=== PATIENT | male | born 1980 | race African-American/Black ===

== ENCOUNTER 2018-11-11 12:32 | Inpatient (IN) | payer OTHER ==
--- NOTE | 2018-11-11 14:48 | HP ---
CIWA Score Nausea/Vomitin-No Nausea/No Vomiting Muscle Tremors: None Anxiety: 2 Agitation: 0-Normal Activity Paroxysmal Sweats: 1-Minimal Palms Moist Orientation: 0-Oriented Tacttile Disturbances: 0-None Auditory Disturbances: 0-None Visual Disturbances: 0-None Headache: 0-None Present CIWA-Ar Total Score: 3 - Admission Criteria OASAS Guidelines: Admission for Medically Managed Detox: Requires at least one of the followin. CIWA greater than 12 2. Seizures within the past 24 hours 3. Delirium tremens within the past 24 hours 4. Hallucinations within the past 24 hours 5. Acute intervention needed for co occurring medical disorder 6. Acute intervention needed for co occurring psychiatric disorder 7. Severe withdrawal that cannot be handled at a lower level of care (continued vomiting, continued diarrhea, abnormal vital signs) requiring intravenous medication and/or fluids 8. Patient presents the following: None of the above Admission Criteria Met: Admission criteria not met Admission ROS [facility] Chief Complaint: " alcohol rehabilitation." Allergies/Adverse Reactions: Allergies Allergy/AdvReac Type Severity Reaction Status Date / Time No Known Allergies Allergy Verified 11/11/18 14:16 History of Present Illness: 38 yo male with hx of nicotine, marijuana and alcohol dependence is here seeking rehabilitation, patient referred by [facility]. PMHX: HTN Patient reports linked to TAD program at [facility] for bipolar and schizophrenia. Denies hx of seizures or blackouts. Reports last detox at [facility] two years ago. Denies suicidal / homicidal ideation. Reports hx of suicide attempt at 16 yo. Exam Limitations: No Limitations - Ebola screening Have you traveled outside of the country in the last 21 days: No Have you had contact with anyone from an Ebola affected area: No Do you have a fever: No - Review of Systems Constitutional: No Symptoms Reported EENT: reports: No Symptoms Reported Respiratory: reports: No Symptoms reported Cardiac: reports: No Symptoms Reported GI: reports: No Symptoms Reported : reports: No Symptoms Reported Musculoskeletal: reports: No Symptoms Reported Integumentary: reports: No Symptoms Reported Neuro: reports: No Symptoms reported Endocrine: reports: No Symptoms Reported Hematology: reports: No Symptoms Reported Psychiatric: reports: Orientated x3, Anxious Other Systems: Reviewed and Negative Patient History - Patient Medical History Hx Anemia: No Hx Asthma: No Hx Chronic Obstructive Pulmonary Disease (COPD): No Hx Cancer: No Hx Cardiac Disorders: No Hx Congestive Heart Failure: No Hx Hypertension: Yes (no meds ) Hx Hypercholesterolemia: No Hx Pacemaker: No HX Cerebrovascular Accident: No Hx Seizures: No Hx Dementia: No Hx Diabetes: No Hx Gastrointestinal Disorders: No Hx Liver Disease: No Hx Genitourinary Disorders: No Hx Sexually Transmitted Disorders: No Hx Renal Disease (ESRD): No Hx Thyroid Disease: No Hx Hepatitis C: No Hx Depression: No Hx Suicide Attempt: Yes (16 yo hanging ) Hx Bipolar Disorder: Yes Hx Schizophrenia: Yes (Reports received IM hadol QM at [facility] ) - PPD History Previous Implant?: No - Smoking Cessation Smoking history: Current every day smoker Have you smoked in the past 12 months: Yes Aproximately how many cigarettes per day: 3 Hx Chewing Tobacco Use: No Initiated information on smoking cessation: Yes 'Breaking Loose' booklet given: 11/11/18 - Substance & Tx. History Hx Alcohol Use: Yes Hx Substance Use: Yes Substance Use Type: Alcohol Hx Substance Use Treatment: Yes ([facility] two years ago. ) - Substances abused Alcohol Substance route: Oral Frequency: 3-6 times per week Amount used: 1 pint vodka Age of first use: 16 Date of last use: 11/10/18 Marijuana/Hashish Substance route: Smoking Frequency: Daily Amount used: 5 blunts Age of first use: 16 Date of last use: 10/21/18 Family Disease History - Family Disease History Family Disease History: Other: Mother (alcohol, alive) Admission Physical Exam S - Vital Signs Vital Signs: Vital Signs - 24 hr 11/11/18 14:30 Temperature 98.7 F Pulse Rate 72 Respiratory 18 Rate Blood Pressure 131/78 - Physical General Appearance: Yes: Appropriately Dressed, Thin, Anxious HEENTM: Yes: EOMI, Hearing grossly Normal, Normal ENT Inspection, Normocephalic , Normal Voice, LEDA, Pharynx Normal, Tm's normal Respiratory: Yes: Chest Non-Tender, Lungs Clear, Normal Breath Sounds, No Respiratory Distress, No Accessory Muscle Use Neck: Yes: Within Normal Limits Breast: Yes: Breast Exam Deferred Cardiology: Yes: Regular Rhythm, Regular Rate Abdominal: Yes: Normal Bowel Sounds, Non Tender, Flat, Soft Genitourinary: Yes: Within Normal Limits Back: Yes: Normal Inspection Musculoskeletal: Yes: full range of Motion, Gait Steady, Pelvis Stable Extremities: Yes: Normal Capillary Refill, Normal Inspection, Normal Range of Motion, Non-Tender Neurological: Yes: shipsmith II-XII NML intact, Fully Oriented, Alert, Motor Strength 5/5 Integumentary: Yes: Normal Color, Dry, Warm Lymphatic: Yes: Within Normal Limits - Diagnostic (1) Alcohol dependence Current Visit: Yes Status: Acute (2) Marijuana dependence Current Visit: Yes Status: Acute (3) Nicotine dependence Current Visit: Yes Status: Acute (4) Hypertension Current Visit: Yes Status: Chronic Qualifiers: Hypertension type: essential hypertension Qualified Code(s): I10 - Essential (primary) hypertension Breathalyzer - Breathalyzer Breathalyzer: 0 Urine Drug Screen - Test Device Lot number: [id number] Expiration date: 07/12/20 - Control Is test valid?: Yes - Results Drug screen NEGATIVE: No Urine drug screen results: THC-Marijuana, BZO-Benzodiazepines Inpatient Rehab Admission - Rehab Decision to Admit Inpatient rehab admission?: Yes - Initial Determination Are CD services needed?: Yes Free of communicable disease: Yes Not in need of hospitalization: Yes - Rehab Admission Criteria Previous failed treatment: Yes Poor recovery environment: Yes Comorbidities: Yes Lacks judgement: Yes Patient is meeting Inpatient Rehab admission criteria:: Yes
[2018-11-11] MEDS ORDERED: MAG HYDROX/AL HYDROX/SIMETH 30 ML UNIT-DOSE CUP PO PRN (14:59)
[2018-11-11] MEDS ORDERED: NICOTINE POLACRILEX 2 MG GUM BUC PRN (14:59)
[2018-11-11] MEDS ORDERED: MAGNESIUM HYDROX 2400MG/30ML ORAL SUSPENSION 30 ML CUP PO PRN (14:59)
[2018-11-11] MEDS ORDERED: MAGNESIUM CITRATE 300 ML BOTTLE PO PRN (14:59)
[2018-11-11] MEDS ORDERED: guaiFENesin 200 MG/10 ML 10 ML UNIT-DOSE CUPS PO PRN (14:59)
[2018-11-11] MEDS ORDERED: LOPERAMIDE HCL 2 MG CAPSULE PO PRN (14:59)
[2018-11-11] MEDS ORDERED: P-EPHED 60MG/TRIPROLIDI 2.5MG TABLET PO PRN (14:59)
[2018-11-11] MEDS ORDERED: hydrOXYzine PAMOATE 50 MG CAPSULE (FP) PO PRN (14:59)
[2018-11-11] MEDS ORDERED: MENTHOL/PHENOL 1 EACH UD MM PRN (14:59)
[2018-11-11] MEDS ORDERED: TUBERCULIN PPD 5 TU/0.1ML VIAL ID ONE (16:40)
--- NOTE | 2018-11-11 17:40 | CONSULT ---
[facility] Psychiatric Consult - Data Date of interview: 11/11/18 Admission source: [facility] Identifying data: First admission to [facility] for this 38 y/o AA male referred , by his casey saw operator from [facility] program, for rehabilitative care. Substances of abuse : alcohol, cannabis and nicotine. Examined at [address] Patient is single, no children, domiciled, unemployed and supported on SSI benefits. Substance Abuse History: Confirmed by the patient in this interview. Details in current [facility] report as follows : Smoking history: Current every day smoker. Have you smoked in the past 12 months: Yes. Aproximately how many cigarettes per day: 3. Hx Chewing Tobacco Use: No. Initiated information on smoking cessation: Yes. 'Breaking Loose' booklet given: 11/11/18. - Substance & Tx. History. Hx Alcohol Use: Yes. Hx Substance Use: Yes. Substance Use Type: Alcohol. Hx Substance Use Treatment: Yes ([facility] two years ago. ). - Substances abused. Alcohol. Substance route: Oral. Frequency: 3-6 times per week. Amount used: 1 pint vodka. Age of first use: 16. Date of last use: 11/10/18. Marijuana/Hashish. Substance route: Smoking. Frequency: Daily. Amount used: 5 blunts. Age of first use: 16. Date of last use: 10/21/18 Medical History: Patient endorses good general health. Psychiatric History: Patient admits to a history of 2-3 psychiatric hospitalizations ([facility], [facility]). Onset of psychiatric disturbances : age 16 (serious suicide attempt via self-mutilation : attempted to slash his throat with a razor). Got his first psychiatric hospitalization at [facility] (involuntary committment for more than three months). Medicated, at the time, with Mellaril and thorazine. Diagnosed with " Bipolar Disorder + Schizophrenia ". Mr Rudolph is currently followed at the [facility] (Day treatment program). Patient is now on monthly IM injections of haloperidol decanoate (last dispensed two weeks ago, as per self- report). Dosage not recalled by the patient. Suicide history : two attempts ( age 16 : slashed his throat / age 18 : attempted to jump from a high rise window but was dissuaded by [facility]). Physical/Sexual Abuse/Trauma History: Patient denies history of abuse. Additional Comment: Urine drug screen results: THC-Marijuana, BZO- Benzodiazepines. Noted. Mental Status Exam - Mental Status Exam Alert and Oriented to: Time, Place, Person Cognitive Function: Good Patient Appearance: Well Groomed (noted as decently groomed and appearing his stated age) Mood: Hopeful, Euthymic (calm) Affect: Appropriate, Normal Range Patient Behavior: Fatigued, Appropriate (friendly, receptive to teaching), Cooperative Speech Pattern: Clear, Appropriate (observed as a good historian) Voice Loudness: Normal Thought Process: Goal Oriented Thought Disorder: Not Present (at time of this examination) Hallucinations: Denies Suicidal Ideation: Denies Homicidal Ideation: Denies Insight/Judgement: Fair Sleep: Fair Appetite: Good (as per self-report) Muscle strength/Tone: Normal Gait/Station: Normal Psychiatric Findings - Problem List ([place] 1, 2,3) (1) History of schizophrenia Current Visit: Yes Status: Chronic (2) Alcohol dependence Current Visit: Yes Status: Chronic (3) Marijuana dependence Current Visit: Yes Status: Chronic (4) Nicotine dependence Current Visit: Yes Status: Chronic - Initial Treatment Plan Initial Treatment Plan: Psychoeducation. Support. Orientation to the unit. Sleep hygiene. AA meetings. Groups. Strategies for ETOH relapse prevention (MAT initiatives, counseling) : to be discussed with the patient at therapy sessions throughout this hospital course. Motivational enhancement for positive lifestyle changes. Will contact casey saw operator at the [facility] program for collateral information + details of medication regimen (dose of haldol decanoate + date of most recent injection). Psychotropics held until information from [facility]. Discussed with the patient. Mr Rudolph has expressed his agreement with this plan of care. Observation.
[2018-11-11] MEDS: THIAMINE HCL 100 MG TABLET (FP) PO SCH (21:23)
[2018-11-12 09:59] LABS: HEMATOCRIT 42.4 % (35.4-49); HEMOGLOBIN 14.3 GM/dL (11.7-16.9); MCH 31.4 pg (25.7-33.7); MCHC 33.7 g/dl (32.0-35.9); MEAN PLT VOLUME 9.4 fl (7.5-11.1); PLATELET COUNT 245 K/MM3 (134-434); RBC 4.56 M/mm3 (4.00-5.60); RDW 13.9 % (11.9-15.9); WHITE BLOOD COUNT 8.2 K/mm3 (4.0-10.0)
[2018-11-12] MEDS: NICOTINE 14 MG/24 HOURS TOPICAL PATCH TD SCH (10:19)
[2018-11-12] MEDS: PRENATAL VITAMINS W/ FOLIC ACID TABLET (FP) PO SCH (10:19)
[2018-11-12 10:42] LABS: ALBUMIN 3.9 g/dl (3.4-5.0); ALK PHOS 69 U/L (45-117); ANION GAP 6 MMOL/L (8-16); BILIRUBIN,TOTAL 0.3 mg/dL (0.2-1); BLOOD UREA NITROGEN 12 mg/dL (7-18); CALCIUM 9.3 mg/dL (8.5-10.1); CHLORIDE 106 mmol/L (98-107); CO2 28 mmol/L (21-32); CREATININE 1.2 mg/dL (0.55-1.3); GLUCOSE,RANDOM 119 mg/dL (74-106); POTASSIUM 4.7 mmol/L (3.5-5.1); SGOT/AST 10 U/L (15-37); SGPT/ALT 18 U/L (13-61); SODIUM 140 mmol/L (136-145); TOT PROT 7.3 g/dl (6.4-8.2)
--- NOTE | 2018-11-12 14:46 | EKG ---
Test Reason : Blood Pressure : / mmHG Vent. Rate : 067 BPM Atrial Rate : 067 BPM P-R Int : 152 ms QRS Dur : 066 ms QT Int : 358 ms P-R-T Axes : 035 -18 036 degrees QTc Int : 378 ms NORMAL SINUS RHYTHM NORMAL ECG NO PREVIOUS ECGS AVAILABLE Confirmed by Rodriguez Wilson ([id number]) on 11/12/2018 2:46:13 PM Referred By: Confirmed By:Rodriguez Wilson
[2018-11-12] MEDS: MELATONIN 5 MG TABLETS PO PRN (21:32)
[2018-11-12] MEDS: THIAMINE HCL 100 MG TABLET (FP) PO SCH (21:33)
[2018-11-13] MEDS: PRENATAL VITAMINS W/ FOLIC ACID TABLET (FP) PO SCH (10:11)
[2018-11-13] MEDS: NICOTINE 14 MG/24 HOURS TOPICAL PATCH TD SCH (10:11)
--- NOTE | 2018-11-13 16:34 | PN ---
[facility] Progress Note Note: Psychiatry Attending's note (follow-up) : Several attempts made to contact [facility] OPD clinic. Principal Network Architect called : [phone] Unable to find a supervisor contact lens. Message left for Director of OPD services. At [phone]. Will follow.
[2018-11-13] MEDS: THIAMINE HCL 100 MG TABLET (FP) PO SCH (21:16)
[2018-11-13] MEDS: MELATONIN 5 MG TABLETS PO PRN (21:16)
[2018-11-14] MEDS: NICOTINE 14 MG/24 HOURS TOPICAL PATCH TD SCH (10:02)
[2018-11-14] MEDS: PRENATAL VITAMINS W/ FOLIC ACID TABLET (FP) PO SCH (10:03)
[2018-11-14] MEDS: ACETAMINOPHEN 325 MG TABLET (FP) PO PRN (13:12)
[2018-11-14] MEDS: THIAMINE HCL 100 MG TABLET (FP) PO SCH (21:26)
[2018-11-15] MEDS: NICOTINE 14 MG/24 HOURS TOPICAL PATCH TD SCH (09:54)
[2018-11-15] MEDS: PRENATAL VITAMINS W/ FOLIC ACID TABLET (FP) PO SCH (09:54)
[2018-11-15] MEDS: ACETAMINOPHEN 325 MG TABLET (FP) PO PRN (19:09)
[2018-11-15] MEDS: THIAMINE HCL 100 MG TABLET (FP) PO SCH (21:37)
[2018-11-16] MEDS: NICOTINE 14 MG/24 HOURS TOPICAL PATCH TD SCH (10:04)
[2018-11-16] MEDS: PRENATAL VITAMINS W/ FOLIC ACID TABLET (FP) PO SCH (10:04)
--- NOTE | 2018-11-16 13:34 | PN ---
[facility] Progress Note Note: Psychiatry Attending's note (follow-up) : Case discussed with RN Gabino Jeronimo on 11/15/18. Progress note from social sciences research scientist Robert Wiseman (11/15/18) : appreciated. Noted information from [facility]PD about patient's medications. Mr Rudolph is not on haldol decanoate. Instead, he is on Maintena (Abilify) 400 mg IM monthly. Plan : Resume abilify 5 mg po bid + depakote 500 mg po bid. Abilify IM dose (400 mg IM monthly) is due on 11/20/18. According to Ms Wiseman's report. Discussed with Mr Rudolph. Side effects/benefits of both drugs revisited with the patient. Consent (verbal) granted to . Will follow.
[2018-11-16] MEDS: DIVALPROEX SODIUM 500 MG TABLET E.C. PO SCH (21:56)
[2018-11-16] MEDS: THIAMINE HCL 100 MG TABLET (FP) PO SCH (21:56)
[2018-11-16] MEDS: ARIPiprazole 5 MG TABLET (FP) PO SCH (21:56)
[2018-11-17] MEDS: NICOTINE 14 MG/24 HOURS TOPICAL PATCH TD SCH (10:04)
[2018-11-17] MEDS: DIVALPROEX SODIUM 500 MG TABLET E.C. PO SCH ×2 (10:04→21:21)
[2018-11-17] MEDS: PRENATAL VITAMINS W/ FOLIC ACID TABLET (FP) PO SCH (10:04)
[2018-11-17] MEDS: ARIPiprazole 5 MG TABLET (FP) PO SCH ×2 (10:04→21:21)
[2018-11-17] MEDS: THIAMINE HCL 100 MG TABLET (FP) PO SCH (21:21)
[2018-11-18] MEDS: PRENATAL VITAMINS W/ FOLIC ACID TABLET (FP) PO SCH (10:32)
[2018-11-18] MEDS: DIVALPROEX SODIUM 500 MG TABLET E.C. PO SCH ×2 (10:32→21:27)
[2018-11-18] MEDS: ARIPiprazole 5 MG TABLET (FP) PO SCH ×2 (10:32→21:27)
[2018-11-18] MEDS: NICOTINE 14 MG/24 HOURS TOPICAL PATCH TD SCH (10:33)
[2018-11-18] MEDS: IBUPROFEN 400 MG TABLET (FP) PO PRN (12:43)
[2018-11-18] MEDS: THIAMINE HCL 100 MG TABLET (FP) PO SCH (21:27)
[2018-11-19] MEDS: ARIPiprazole 5 MG TABLET (FP) PO SCH ×2 (10:02→21:23)
[2018-11-19] MEDS: NICOTINE 14 MG/24 HOURS TOPICAL PATCH TD SCH (10:02)
[2018-11-19] MEDS: PRENATAL VITAMINS W/ FOLIC ACID TABLET (FP) PO SCH (10:02)
[2018-11-19] MEDS: DIVALPROEX SODIUM 500 MG TABLET E.C. PO SCH ×2 (10:02→21:23)
[2018-11-19] MEDS: THIAMINE HCL 100 MG TABLET (FP) PO SCH (21:23)
[2018-11-20] MEDS: DIVALPROEX SODIUM 500 MG TABLET E.C. PO SCH ×2 (10:00→21:17)
[2018-11-20] MEDS: NICOTINE 14 MG/24 HOURS TOPICAL PATCH TD SCH (10:00)
[2018-11-20] MEDS: ARIPiprazole 5 MG TABLET (FP) PO SCH ×2 (10:00→21:17)
[2018-11-20] MEDS: PRENATAL VITAMINS W/ FOLIC ACID TABLET (FP) PO SCH (10:00)
--- NOTE | 2018-11-20 18:37 | PN ---
[facility] Progress Note Note: Psychiatry Attending's note (follow-up) : Met briefly with the patient. Doing well. Mr Rudolph remains inquisitive about IM aripriprazole. " I am due for my injection. When am I going to get it ? ". Patient is reassured. Dose confirmed by director of [facility] OPD clinic. Fax received from [facility] (dose verified). Side effects/benefits discussed with the patient. Consent (verbal) given to MD. Holland ([facility]) 400 mg IM ONCE To be dispensed on 11/21/18 @ 10:00 AM. Discussed with nursing staff.
[2018-11-20] MEDS: IBUPROFEN 400 MG TABLET (FP) PO PRN (21:17)
[2018-11-20] MEDS: THIAMINE HCL 100 MG TABLET (FP) PO SCH (21:17)
[2018-11-21] MEDS ORDERED: ARIPIPRAZOLE (ABILIFY MAINTENA) 400 MG DISPENSE SYRINGE IM ONE (10:00)
[2018-11-21] MEDS: PRENATAL VITAMINS W/ FOLIC ACID TABLET (FP) PO SCH (11:01)
[2018-11-21] MEDS: DIVALPROEX SODIUM 500 MG TABLET E.C. PO SCH ×2 (11:02→21:23)
[2018-11-21] MEDS: IBUPROFEN 400 MG TABLET (FP) PO PRN ×2 (11:02→21:23)
[2018-11-21] MEDS: NICOTINE 14 MG/24 HOURS TOPICAL PATCH TD SCH (11:04)
[2018-11-21] MEDS: ARIPiprazole 5 MG TABLET (FP) PO SCH ×2 (11:04→21:23)
[2018-11-21] MEDS: THIAMINE HCL 100 MG TABLET (FP) PO SCH (21:23)
[2018-11-22] MEDS: PRENATAL VITAMINS W/ FOLIC ACID TABLET (FP) PO SCH (10:28)
[2018-11-22] MEDS: DIVALPROEX SODIUM 500 MG TABLET E.C. PO SCH ×2 (10:28→21:25)
[2018-11-22] MEDS: NICOTINE 14 MG/24 HOURS TOPICAL PATCH TD SCH (10:28)
[2018-11-22] MEDS: ARIPiprazole 5 MG TABLET (FP) PO SCH ×2 (10:28→21:25)
[2018-11-22] MEDS: THIAMINE HCL 100 MG TABLET (FP) PO SCH (21:25)
[2018-11-22] MEDS: IBUPROFEN 400 MG TABLET (FP) PO PRN (21:25)
[2018-11-23] MEDS: IBUPROFEN 400 MG TABLET (FP) PO PRN (09:56)
[2018-11-23] MEDS: PRENATAL VITAMINS W/ FOLIC ACID TABLET (FP) PO SCH (09:56)
[2018-11-23] MEDS: NICOTINE 14 MG/24 HOURS TOPICAL PATCH TD SCH (09:56)
[2018-11-23] MEDS: DIVALPROEX SODIUM 500 MG TABLET E.C. PO SCH ×2 (09:56→21:16)
[2018-11-23] MEDS: ARIPiprazole 5 MG TABLET (FP) PO SCH ×2 (09:56→21:16)
[2018-11-23] MEDS: THIAMINE HCL 100 MG TABLET (FP) PO SCH (21:16)
[2018-11-24] MEDS: IBUPROFEN 400 MG TABLET (FP) PO PRN (08:55)
[2018-11-24] MEDS: PRENATAL VITAMINS W/ FOLIC ACID TABLET (FP) PO SCH (10:18)
[2018-11-24] MEDS: DIVALPROEX SODIUM 500 MG TABLET E.C. PO SCH ×2 (10:18→21:36)
[2018-11-24] MEDS: ARIPiprazole 5 MG TABLET (FP) PO SCH ×2 (10:18→21:36)
[2018-11-24] MEDS: NICOTINE 14 MG/24 HOURS TOPICAL PATCH TD SCH (10:19)
[2018-11-24] MEDS: THIAMINE HCL 100 MG TABLET (FP) PO SCH (21:36)
[2018-11-25] MEDS: NICOTINE 14 MG/24 HOURS TOPICAL PATCH TD SCH (09:56)
[2018-11-25] MEDS: ARIPiprazole 5 MG TABLET (FP) PO SCH ×2 (09:56→21:25)
[2018-11-25] MEDS: DIVALPROEX SODIUM 500 MG TABLET E.C. PO SCH ×2 (09:56→21:26)
[2018-11-25] MEDS: PRENATAL VITAMINS W/ FOLIC ACID TABLET (FP) PO SCH (09:56)
[2018-11-25] MEDS: THIAMINE HCL 100 MG TABLET (FP) PO SCH (21:25)
[2018-11-25] MEDS: IBUPROFEN 400 MG TABLET (FP) PO PRN (21:25)
[2018-11-26] MEDS: ARIPiprazole 5 MG TABLET (FP) PO SCH ×2 (09:34→21:34)
[2018-11-26] MEDS: DIVALPROEX SODIUM 500 MG TABLET E.C. PO SCH ×2 (09:34→21:34)
[2018-11-26] MEDS: IBUPROFEN 400 MG TABLET (FP) PO PRN (09:34)
[2018-11-26] MEDS: PRENATAL VITAMINS W/ FOLIC ACID TABLET (FP) PO SCH (09:34)
[2018-11-26] MEDS: NICOTINE 14 MG/24 HOURS TOPICAL PATCH TD SCH (09:35)
[2018-11-26] MEDS: THIAMINE HCL 100 MG TABLET (FP) PO SCH (21:34)
[2018-11-27] MEDS: IBUPROFEN 400 MG TABLET (FP) PO PRN (08:22)
[2018-11-27] MEDS: DIVALPROEX SODIUM 500 MG TABLET E.C. PO SCH ×2 (10:18→21:32)
[2018-11-27] MEDS: ARIPiprazole 5 MG TABLET (FP) PO SCH ×2 (10:18→21:32)
[2018-11-27] MEDS: PRENATAL VITAMINS W/ FOLIC ACID TABLET (FP) PO SCH (10:18)
[2018-11-27] MEDS: NICOTINE 14 MG/24 HOURS TOPICAL PATCH TD SCH (10:18)
[2018-11-27] MEDS: THIAMINE HCL 100 MG TABLET (FP) PO SCH (21:32)
[2018-11-28] MEDS: ARIPiprazole 5 MG TABLET (FP) PO SCH ×2 (10:12→21:20)
[2018-11-28] MEDS: DIVALPROEX SODIUM 500 MG TABLET E.C. PO SCH ×2 (10:12→21:20)
[2018-11-28] MEDS: PRENATAL VITAMINS W/ FOLIC ACID TABLET (FP) PO SCH (10:12)
[2018-11-28] MEDS: NICOTINE 14 MG/24 HOURS TOPICAL PATCH TD SCH (10:13)
[2018-11-28] MEDS: THIAMINE HCL 100 MG TABLET (FP) PO SCH (21:20)
[2018-11-29] MEDS: DIVALPROEX SODIUM 500 MG TABLET E.C. PO SCH ×2 (10:04→21:19)
[2018-11-29] MEDS: PRENATAL VITAMINS W/ FOLIC ACID TABLET (FP) PO SCH (10:04)
[2018-11-29] MEDS: ARIPiprazole 5 MG TABLET (FP) PO SCH ×2 (10:04→21:19)
[2018-11-29] MEDS: NICOTINE 14 MG/24 HOURS TOPICAL PATCH TD SCH (10:04)
[2018-11-29] MEDS: IBUPROFEN 400 MG TABLET (FP) PO PRN (21:19)
[2018-11-29] MEDS: THIAMINE HCL 100 MG TABLET (FP) PO SCH (21:19)
[2018-11-30] MEDS: ARIPiprazole 5 MG TABLET (FP) PO SCH ×2 (10:07→22:01)
[2018-11-30] MEDS: NICOTINE 14 MG/24 HOURS TOPICAL PATCH TD SCH (10:07)
[2018-11-30] MEDS: DIVALPROEX SODIUM 500 MG TABLET E.C. PO SCH ×2 (10:07→22:01)
[2018-11-30] MEDS: PRENATAL VITAMINS W/ FOLIC ACID TABLET (FP) PO SCH (10:07)
[2018-11-30] MEDS: IBUPROFEN 400 MG TABLET (FP) PO PRN ×2 (10:07→22:01)
[2018-11-30] MEDS: THIAMINE HCL 100 MG TABLET (FP) PO SCH (22:01)
[2018-12-01] MEDS: IBUPROFEN 400 MG TABLET (FP) PO PRN ×2 (07:45→15:04)
[2018-12-01] MEDS: PRENATAL VITAMINS W/ FOLIC ACID TABLET (FP) PO SCH (10:54)
[2018-12-01] MEDS: DIVALPROEX SODIUM 500 MG TABLET E.C. PO SCH ×3 (10:54→23:20)
[2018-12-01] MEDS: ARIPiprazole 5 MG TABLET (FP) PO SCH ×3 (10:54→23:20)
[2018-12-01] MEDS: NICOTINE 14 MG/24 HOURS TOPICAL PATCH TD SCH (10:55)
[2018-12-01] MEDS: THIAMINE HCL 100 MG TABLET (FP) PO SCH (22:32)
[2018-12-02] MEDS: IBUPROFEN 400 MG TABLET (FP) PO PRN (06:35)
[2018-12-02] MEDS: PRENATAL VITAMINS W/ FOLIC ACID TABLET (FP) PO SCH (10:30)
[2018-12-02] MEDS: NICOTINE 14 MG/24 HOURS TOPICAL PATCH TD SCH (10:30)
[2018-12-02] MEDS: DIVALPROEX SODIUM 500 MG TABLET E.C. PO SCH ×2 (10:30→21:17)
[2018-12-02] MEDS: ARIPiprazole 5 MG TABLET (FP) PO SCH ×2 (10:30→21:17)
[2018-12-02] MEDS: THIAMINE HCL 100 MG TABLET (FP) PO SCH (21:17)
[2018-12-03] MEDS: PRENATAL VITAMINS W/ FOLIC ACID TABLET (FP) PO SCH (10:30)
[2018-12-03] MEDS: NICOTINE 14 MG/24 HOURS TOPICAL PATCH TD SCH (10:31)
[2018-12-03] MEDS: ARIPiprazole 5 MG TABLET (FP) PO SCH ×2 (10:31→21:18)
[2018-12-03] MEDS: DIVALPROEX SODIUM 500 MG TABLET E.C. PO SCH ×2 (10:31→21:18)
[2018-12-03] MEDS: THIAMINE HCL 100 MG TABLET (FP) PO SCH (21:18)
[2018-12-04 06:37] VITALS: BP 134/69; PULSE 81; TEMP 97.1
[2018-12-04] MEDS: DIVALPROEX SODIUM 500 MG TABLET E.C. PO SCH (10:18)
[2018-12-04] MEDS: ARIPiprazole 5 MG TABLET (FP) PO SCH (10:18)
[2018-12-04] MEDS: PRENATAL VITAMINS W/ FOLIC ACID TABLET (FP) PO SCH (10:19)
[2018-12-04] MEDS: NICOTINE 14 MG/24 HOURS TOPICAL PATCH TD SCH (10:19)
--- NOTE | 2018-12-04 13:36 | PN ---
[facility] Progress Note Note: PT COMPLETED REHAB AND DISCHARGED TODAY. PT MET WITH HIS COUNSELOR AND HAS BEEN REFERRED TO [facility]PD FOR CD AFTERCARE ON [address] [address]. PT ALSO REPORTS HE HAS PCP AT [facility] FOR MEDICAL MANAGEMENT. PT IS ALERT O X 3. DENIES S/H/I. Home Medications Medication Instructions Recorded Aripiprazole [Abilify Maintena] 400 mg IM MONTHLY 11/15/18 Aripiprazole [Abilify] 5 mg PO BID 11/15/18 Divalproex [Depakote -] 750 mg PO BID 11/15/18 Aripiprazole [Abilify -] 5 mg PO BID #60 tablet 12/04/18 Divalproex [Depakote -] 500 mg PO BID #60 tablet.ec 12/04/18 Vital Signs - 24 hr 12/04/18 12/04/18 00:30 06:36 Temperature 97.1 F L Pulse Rate 81 Respiratory 18 18 Rate Blood Pressure 134/69 Laboratory Tests 11/12/18 11/12/18 11/12/18 06:00 06:00 06:00 WBC 8.2 RBC 4.56 Hgb 14.3 Hct 42.4 MCV 93.0 MCH 31.4 MCHC 33.7 RDW 13.9 Plt Count 245 MPV 9.4 Sodium 140 Potassium 4.7 Chloride 106 Carbon Dioxide 28 Anion Gap 6 L BUN 12 Creatinine 1.2 Creat Clearance w eGFR 67.76 POC Glucometer Random Glucose 119 H Calcium 9.3 Total Bilirubin 0.3 AST 10 L ALT 18 Alkaline Phosphatase 69 Total Protein 7.3 Albumin 3.9 Valproic Acid RPR Titer Nonreactive 11/13/18 11/14/18 11/21/18 06:52 07:01 08:05 WBC RBC Hgb Hct MCV MCH MCHC RDW Plt Count MPV Sodium Potassium Chloride Carbon Dioxide Anion Gap BUN Creatinine Creat Clearance w eGFR POC Glucometer 116 100 Random Glucose Calcium Total Bilirubin AST ALT Alkaline Phosphatase Total Protein Albumin Valproic Acid 70.0 RPR Titer NAD MEDICALLY STABLE PLAN:FOLLOW UP WITH CD AFTERCARE RECOMMENDED ON 12/05/18 AT 9:00. FOLLOW UP WITH MEDICAL MANAGEMENT WITH YOUR PCP WITHIN 1-2 WEEKS AFTER DISCHARGE.
== END 2018-12-04 13:40 | disposition home or self-care (01) | DRG 772 ==
LOC: YASAS 12:32 → UNDOADMIN 15:05 → Y6N 15:05 → Y5N 15:19
PROVIDERS: ADMIT Neuromusculoskeletal Medicine & OMM; ATTEND Neuromusculoskeletal Medicine & OMM
PROC: HZ42ZZZ Group Counseling for Substance Abuse Treatment, Cognitive-Behavioral (ICD-10-PCS; principal; 2018-11-11)
DX: F10.20 Alcohol dependence, uncomplicated (principal); F12.20 Cannabis dependence, uncomplicated; F17.210 Nicotine dependence, cigarettes, uncomplicated; Z91.5 Personal history of self-harm
CPT/HCPCS: 36415; 80053; 80164; 82962; 85027; 86593; 93005; 93010